=== PATIENT | female | born 1955 | race Caucasian/White ===

== ENCOUNTER → 2018-08-01 | Outpatient (CLI) | payer SELFPAY | LOC: ZCOL.LAB 19:18 | DX: S69.82XA Other specified injuries of left wrist, hand and finger(s), initial encounter (principal) ==

== ENCOUNTER 2024-01-13 10:49 | Inpatient (IN) | payer MEDICARE, BC ==
[~2024-01-13] VITALS: Ht 162.6 cm; Wt 83.4 kg
[2024-01-13] MEDS ORDERED: COLACE 100100 MG/CAP PO (14:16)
[2024-01-13] MEDS ORDERED: LACTULOSE10 GM/153 PO (14:30)
[2024-01-13] MEDS ORDERED: ROBAXIN 50500 MG/TAB PO (14:31)
[2024-01-13] MEDS ORDERED: GOOD NEIGH1200 MG/15 PO (14:43)
[2024-01-13] MEDS ORDERED: ROXICODONE 55 MG/TAB PO (14:43)
[2024-01-13] MEDS ORDERED: NATURAL SENNA8.6 MG PO (14:45)
[2024-01-13] MEDS ORDERED: VITAMINC1000TA PO (14:48)
[2024-01-13] MEDS ORDERED: TYLENOL 500MG500 MG PO (14:48)
[2024-01-13] MEDS ORDERED: OS-CAL 500 + D1 TAB PO (14:50)
[2024-01-13] MEDS ORDERED: VITAMIND3 5000 PO (14:50)
[2024-01-13] MEDS ORDERED: PEPCID 20MG TAB20 MG PO (14:51)
[2024-01-13] MEDS ORDERED: CRANBERRY250 MG PO (14:51)
[2024-01-13] MEDS ORDERED: NEURONTIN300 MG/CAP PO (14:53)
[2024-01-13] MEDS ORDERED: PRINIVIL10 MG PO (14:54)
[2024-01-13] MEDS ORDERED: PROBIOTIC ACID PO (14:54)
[2024-01-13] MEDS ORDERED: WOMEN'S DAILY1 TAB PO (14:55)
[2024-01-13] MEDS ORDERED: MACRODANTIN100 PO (14:55)
[2024-01-13] MEDS ORDERED: Naloxone 0.4 MG/ML VIAL IV PRN (16:30)
[2024-01-13] MEDS ORDERED: Docusate Sodium 100 MG CAP PO PRN (16:30)
[2024-01-13] MEDS ORDERED: Acetaminophen 500 MG TAB PO PRN (16:30)
[2024-01-13] MEDS ORDERED: PROBIOTIC-MAJOR PO (16:38)
[2024-01-13] MEDS ORDERED: HEPARIN SOD5000 U/ML SQ (16:42)
[2024-01-13 16:44] VITALS: BP 167/81; PULSE 85; TEMP 98.3
[2024-01-13] MEDS ORDERED: oxyCODONE 5 MG TAB PO PRN (17:00)
[2024-01-13] MEDS ORDERED: Famotidine 20 MG TAB PO PRN (17:00)
[2024-01-13] MEDS ORDERED: Heparin 5,000 UNITS/ML 1 ML VIAL SQ SCH (17:00)
[2024-01-13] MEDS ORDERED: Gabapentin 300 MG CAP PO SCH (17:00)
[2024-01-13] MEDS ORDERED: Methocarbamol 500 MG TAB PO PRN (17:00)
[2024-01-13 17:30] VITALS: BP_SYST 156
[2024-01-13 17:48] VITALS: BP 156/82; PULSE 87; TEMP 98.5
--- NOTE | 2024-01-13 19:32 | NUR ---
Patient admitted to room 334 from [facility]. Admission completed. Patient alert and oriented. aware of arrival and cares discussed including stright cath and elevated BP and pain. Her supportive family at bedside. Brace off in bed. Warm blanket and medication for comfort. BEdside report to ramya
[2024-01-13 21:00] VITALS: BP_SYST 156
[2024-01-13] MEDS ORDERED: Lisinopril 20 MG TAB PO SCH (21:00)
[2024-01-13] MEDS ORDERED: NITROFURANTOIN 50 MG PO SCH (21:00)
[2024-01-13] MEDS ORDERED: Sennosides/Docusate 8.6-50 MG TAB PO SCH (21:00)
[2024-01-13] MEDS ORDERED: Lactulose Oral Soln 10 GM/15 ML CUP PO PRN (21:00)
[2024-01-13] MEDS ORDERED: Ascorbic Acid 500 MG TAB PO SCH (21:00)
[2024-01-13] MEDS ORDERED: Magnes Hydrox (MOM) 80 MG/ML 30 ML CUP PO SCH (21:00)
--- NOTE | 2024-01-13 21:30 | NUR ---
ASSISTED BEDSIDE RN TO PREFORM STRAIGHT CATH WITH 250CC OF URINE OUT, SEE I&O.
--- NOTE | 2024-01-13 22:18 | NUR ---
report received from kirti matos. pt resting in bed with family at bedside. pt reports pain med given on prev. shift has somewhat relieved her pain. fall precautions in place. call light in reach. all needs met at this time.
--- NOTE | 2024-01-13 23:52 | NUR ---
shift assessment complete, see documentation. pt tolerated hs meds well. pt tolerated straight cath well with 250ml clear yellow urine. pt c/o low back/leg back. prn muscle relaxer administered per orders. pt resting in bed. fall precautions in place. call light in reach. all needs met at this time.
[2024-01-14 06:00] VITALS: BP 154/86; PULSE 89; TEMP 98.7
--- NOTE | 2024-01-14 07:12 | NUR ---
Shift report received from night RN. No events reported overnight. Pt sleeping supine in bed w/ even & unlabored resps. Call light in reach. Bed alarm on.
--- NOTE | 2024-01-14 08:29 | NUR ---
Pt lying supine in bed after eating breakfast independently. Pt assisted to sitting position for a.m. medications. Amelia requested. Pain medication given this morning during the shift supervisor film processing. Pt reports vomiting x 1 during the night & had a loose stool. Pt reports some itching to back incision. Midline abd incision w/ CDI jayson & redness along incision. PT at the bedside for eval.
[2024-01-14] MEDS ORDERED: hydrOXYzine HCl 10 MG TAB PO PRN (08:45)
[2024-01-14] MEDS ORDERED: Cholecalciferol (Vit D3) 5000 Units Capsule PO SCH (09:00)
[2024-01-14] MEDS ORDERED: Calcium Carb/Vit D3 500 mg-200 Units TAB PO SCH (09:00)
--- NOTE | 2024-01-14 09:05 | NUR ---
Pt sitting up on side of bed with PT. Serosaing drainage noted from back right lower back incision. Dr. Manzanares notified & at the bedside for eval. Airstrip dressing applied to left & right back incisions. Will continue to monitor.
--- NOTE | 2024-01-14 11:27 | NUR ---
Pt requesting straight cath. Order received to straight cath q4h per pt's home schedule. Pt usually straight caths at home independently prior to her surgery. RN & OT at the bedside to assess pt's ability to perform independently. Pt ambulated from recliner to bathroom & felt BLE too weak to continue standing. Will revisit self-straight cath once BLE stronger & per OT recommendations. Straight cath performed w/ 270 mL clear, yellow urine obtained. OT at the bedside for sponge bath.
--- NOTE | 2024-01-14 12:25 | NUR ---
Pt sitting up in bed to eat lunch but does not feel like eating. Pt reporting mild nausea & back pain. Oxycodone given per PRN order. Dr. Romero notified of nausea - see EMAR for changes.
--- NOTE | 2024-01-14 12:35 | NUR ---
Zofran given per PRN order.
--- NOTE | 2024-01-14 12:57 | NUR ---
Pt feeling like her pain & nausea are "getting better". Reports feeling sleepy. Other needs denied. Call light in reach. Bed alarm on.
--- NOTE | 2024-01-14 16:13 | NUR ---
Pt sitting up in bed working on her laptop. Pt reporting pain 5/10. Oxycodone given per PRN order. Other needs denied. Call light in reach. Bed alarm on.
[2024-01-14 17:35] VITALS: BP 133/77; PULSE 82; TEMP 98.4
--- NOTE | 2024-01-14 17:41 | NUR ---
Pt sitting up in bed eating dinner independently. Does feel like eating much. Denies any needs. Call light in reach. Bed alarm on.
--- NOTE | 2024-01-14 19:15 | NUR ---
PT REPORTS FEELING LIKE SHE NEEDS STRAIGHT CATHED. GOT 300ML CLEAR ZEESHAN OUTPUT.
--- NOTE | 2024-01-14 21:15 | NUR ---
PT A&O X4 LAYING IN BED ON TABLET. MIDLINE INCISION W/ SHAKIR INTACT & X2 INCISIONS TO LOWER BACK WITH DRSG CDI. RATING PAIN 4/10 & REQUESTING PAIN MEDS AT BEDTIME. DENYING OTHER NEEDS AT THIS TIME. CALL LIGHT IN REACH & BED ALARM ON
--- NOTE | 2024-01-14 22:20 | NUR ---
PER MAR GAVE PRN OXYCODONE PER PT REQUEST FOR BACK PAIN. STRAIGHT CATHED AGAIN PER PT REQUEST & RECEIVED 100ML ZEESHAN OUTPUT. DENYING OTHER NEEDS. CALL LIGHT IN REACH & BED ALARM ON
--- NOTE | 2024-01-15 02:20 | NUR ---
PT REQUESTING TO BE STRAIGHT CATHED. YELLOW OUTPUT 250MLS
[2024-01-15 06:26] VITALS: BP 161/74; PULSE 81; TEMP 98.1
--- NOTE | 2024-01-15 06:30 | NUR ---
given prn oxycodone per pt request for back & leg pain. straight cathed pt per request & 300ml yellow output
--- NOTE | 2024-01-15 06:52 | NUR ---
Shift report received from night RN. Pt awake & lying supine in bed. Pillow placed under back for support/comfort per pt request. Other needs denied. brought in raised toilet seat from home overnight - will discuss w/ OT. No events reported overnight. Call light in reach. Bed alarm on.
--- NOTE | 2024-01-15 08:33 | NUR ---
Pt is off unit w/ PT.
--- NOTE | 2024-01-15 11:19 | NUR ---
Pt sitting up in recliner working w/ OT. Oxycodone given at pt's request for pain level of 5. Other needs denied. Call light in reach. Chair alarm in place.
--- NOTE | 2024-01-15 13:08 | NUR ---
Pt requesting to be straight cathed. 250mL dark yellow, clear urine obtained. Encouraged pt to increase her fluid intake. Pt. voiced understanding.
--- NOTE | 2024-01-15 13:18 | NUR ---
Per pt, lab in pt room to obtain ordered lab draw. Lab unable & contact [facility]. This RN placed follow up call to AI & left a voice mail.
--- NOTE | 2024-01-15 13:41 | NUR ---
Pt ambulating off unit w/ PT
--- NOTE | 2024-01-15 14:49 | NUR ---
Pt incontinent of loose BM this morning while working w/ OT. Pt incontinent of small loose stool this afternoon. Okay to hold afternoon scheduled dose of Senna per Dr. Romero. Pt on toilet to attempt BM.
--- NOTE | 2024-01-15 15:35 | NUR ---
Initial visit; Patient tanked [employer] G[employer] Director for looking in on her and offering God's blessings and to keep her in [employer] Director's prayers.
--- NOTE | 2024-01-15 15:41 | NUR ---
dental laboratory worker met with pt to complete intake assessment. Pt reports she lives in [place] with her , Hilda [phone]. She sees Dr. Becker and obtains medications from [facility] in [place] with no issues. She states she is independent with ADLS and has a FWW, ccane, toilet risers, and grab bar for DME. She reports she typically drives herself to appointments. Pt states she does have many stairs in the home. Pt states her DPOA-HC is her and son, Angel. Pt provided a [employer] physical card to obtain this DPOA-HC. SW called the provided number and requested this to be faxed. SW attended team conference meeting and was informed pt was a re-eval and will be in IPR around two weeks. No further needs discussed. SW met with pt and provided team conference notes. She did not have any questions. SW discussed the need for a family meeting next Saturday at 10:15a or 10:30am. She reports she will discuss with her and son and inform SW. Discharge Plan: re-eval
--- NOTE | 2024-01-15 16:47 | NUR ---
Pt lying supine in bed w/ HOB elevated to approx 30 degrees. Lab in room to draw ordered labs, CBC sample hemolyzed - bundle tier and labeler on her way back for redraw. Pt denies the need for pain medication at this time. Reports "feeling okay right now". Other needs denied. Call light in reach. Bed alarm on.
[2024-01-15 16:56] LABS: CALCIUM 8.7 mg/dL (8.4-10.2); CREATININE, serum 0.75 mg/dL (0.57-1.11); POTASSIUM 5.4 mEq/L (3.5-4.5)
[2024-01-15 16:58] VITALS: BP 154/76; PULSE 81; TEMP 97.8
--- NOTE | 2024-01-15 17:05 | NUR ---
Pt repositioned in bed. Requesting pain medication after being moved in bed. Oxycodone given per PRN order.
[2024-01-15 17:37] LABS: HEMOGLOBIN 11.3 g/dl (12.5-16.0); MEAN CELL VOLUME 91 fl (80.0-100.0); MEAN CORPUSCULAR HEMOGLOBIN 29 pg (27-31); MEAN CORPUSCULAR HGB CONC 32 g/dl (33.0-37.0); MEAN PLATELET VOLUME 8.4 fl (7.4-10.4); PLATELET COUNT 349 K/mm3 (130-400); RED BLOOD COUNT 3.86 M/mm3 (4.10-5.30); REDCELL DISTRIBUTION WIDTH-CV 13.9 % (11.5-14.5)
[2024-01-15 17:51] LABS: ANISOCYTOSIS 1+; BAND 4 % (0-10); LYMPHOCYTE 9 % (20.0-51.0); METAMYELOCYTE 5 % (0-0); NEUTROPHILS 76 % (42.0-75.2); POLYCHROMASIA 1+
[2024-01-15 17:52] LABS: STOMATOCYTE 1+
--- NOTE | 2024-01-15 19:00 | NUR ---
Received change of shift report from day shift nurse. Patient resting in bed, family at bedside, no needs voiced at time of report. Exit alarm on, call light in reach.
[2024-01-15 20:59] VITALS: BP 149/76
[2024-01-16 05:49] VITALS: BP 129/76; PULSE 84; TEMP 99.7
--- NOTE | 2024-01-16 07:15 | NUR ---
Change of shift report given to day shift nurse, William. Patient requesting int str cath to be done at this time. Patient has had int cath done this shift about at least x4 that patient has tolerated. Patient also voicing concerns that BLE feel "kind of numb.... I can't move them as well as before surgery" Patient encouraged to express her concerns when doctor is rounding today. No other needs reported. As per PCT report, patient's has passed watery to liquid/loose stools this shift. Denies nausea at this time.
--- NOTE | 2024-01-16 08:25 | NUR ---
PT EATING BREAKFAST. REVIEWED CAREPLAN FOR THE DAY. AM MEDS GIVEN ORDERED. TY PAIN MEDS GIVEN. PT SELF CATHS AT HOME. MIDLINE INCISION CDI WITH SHAKIR TIFFANIE.
[2024-01-16] MEDS ORDERED: Magnes Hydrox (MOM) 80 MG/ML 30 ML CUP PO PRN (09:54)
--- NOTE | 2024-01-16 10:49 | NUR ---
supervisor machine workers recieved a call that pt would like her family meeting at 01/22/24 10:15am. SW informed IPR Director Alexandria. Discharge Plan: re-eval
[2024-01-16] MEDS ORDERED: amLODIPine 5 MG TAB PO SCH (14:27)
[2024-01-16 14:28] LABS: COLLECTION METHOD CATHETER
[2024-01-16] MEDS ORDERED: Sodium Zirconium Cyclosilicate for Oral Susp 10 GM PACKET PO ONE (14:30)
--- NOTE | 2024-01-16 14:40 | NUR ---
Admission QIM scores were reviewed by the team. Code of 88 chosen for oral hygiene was determined by team discussion to be the most usual performance before interventions for this patient during the assessment period. Code of 1 chosen for toileting hygiene was determined by team discussion to be the most usual performance for this patient during the discharge assessment period. Code of 2 chosen for toilet transfers was determined by team discussion to be the most usual performance for this patient during the discharge assessment period. Code of 2 chosen for upper body dressing was determined by team discussion to be the most usual performance before interventions for this patient during the assessment period. Code of 1 chosen for lower body dressing was determined by team discussion to be the most usual performance before interventions for this patient during the assessment period. Code of 2 chosen for sit to lying was determined by team discussion to be the most usual performance before interventions for this patient during the assessment period. Code of 2 chosen for lying to sitting side of bed was determined by team discussion to be the most usual performance before interventions for this patient during the assessment period. Code of 2 chosen for sit to stand was determined by team discussion to be the most usual performance for this patient during the discharge assessment period. Code of 88 chosen for chair to bed was determined by team discussion to be the most usual performance for this patient during the discharge assessment period. Code of 88 chosen for walking 10 feet was determined by team discussion to be the most usual performance for this patient during the discharge assessment period. Code of 88 chosen for walking 50 feet w/ 2 turns was determined by team discussion to be the most usual performance before interventions for this patient during the discharge assessment period.--PD Gabby
[2024-01-16 14:42] LABS: PH 7.5 (5.0-8.5); URINE APPEARANCE CLEAR (CLEAR/HAZY); URINE BLOOD NEGATIVE (NEGATIVE); URINE COLOR YELLOW (YELLOW); URINE GLUCOSE NEGATIVE (NEGATIVE); URINE KETONE NEGATIVE (NEGATIVE); URINE NITRATE NEGATIVE (NEGATIVE); URINE PROTEIN(semi-quant) NEGATIVE (NEGATIVE); URINE UROBILINOGEN 0.2 E.U/dL (0.2-1.0)
[2024-01-16 17:13] VITALS: BP 146/81; PULSE 83; TEMP 99.2
--- NOTE | 2024-01-16 18:19 | NUR ---
STRAIGHT CATH X2 THIS SHIFT. NEW ORDERS FOR HOWARD PLACEMENT. COMPLETED BY [facility] RN STUDENTS AND INSTRUCTOR. PT REPORTS TOLERTED WELL.
--- NOTE | 2024-01-16 19:00 | NUR ---
Received change of shift report from day shift nurse. Patient resting in bed, exit alarm on, call light in reach. Requested and even pain med for LLQ discomfort. Observed lerner cath to DD, draining clear yellow urine. Denies chest pain/SOA/nausea at this time.
[2024-01-16] MEDS ORDERED: Sennosides/Docusate 8.6-50 MG TAB PO SCH (21:00)
[2024-01-16 22:00] VITALS: BP 142/69
--- NOTE | 2024-01-17 03:27 | NUR ---
PATIENT RESTING IN BED WITH EYES CLOSED, BREATHING UNLABORED AND EVEN. EXIT ALARM ON, CALL LIGHT IN REACH.
--- NOTE | 2024-01-17 04:37 | NUR ---
REPORTS HAS FEELING OF ABD FULLNESS, DENIES NAUSEA OR CRAMPING. BOWELS SOUNDS PRESENT BUT SLUGGISH, SEE MAR FOR SUPP GIVEN AND PAIN MEDS. NO OTHER NEEDS REPORTED AT THIS TIME.
[2024-01-17 05:30] VITALS: BP 126/76; PULSE 79; TEMP 99
[2024-01-17 06:15] LABS: HEMOGLOBIN 10.3 g/dl (12.5-16.0); MEAN CELL VOLUME 88 fl (80.0-100.0); MEAN CORPUSCULAR HEMOGLOBIN 29 pg (27-31); MEAN CORPUSCULAR HGB CONC 33 g/dl (33.0-37.0); MEAN PLATELET VOLUME 8.3 fl (7.4-10.4); PLATELET COUNT 351 K/mm3 (130-400); RED BLOOD COUNT 3.54 M/mm3 (4.10-5.30); REDCELL DISTRIBUTION WIDTH-CV 14.2 % (11.5-14.5)
[2024-01-17 06:38] LABS: CREATININE, serum 0.72 mg/dL (0.57-1.11); MAGNESIUM 2.1 mg/dL (1.6-2.6); POTASSIUM 4.6 mEq/L (3.5-4.5)
[2024-01-17 06:40] LABS: HEMATOCRIT 31.2 % (37.0-47.0)
--- NOTE | 2024-01-17 07:00 | NUR ---
awake resting in bed, bedside shift report received from VIRIDIANA Mary
--- NOTE | 2024-01-17 07:03 | NUR ---
Change of shift report given to day shift nurseMelyssa. Patient resting in bed, exit alarm on, call light in reach. No needs voiced at time of report.
--- NOTE | 2024-01-17 07:40 | NUR ---
up to bathroom and havig bowel movement, therapy is scheduled for 744
[2024-01-17 08:20] LABS: BAND 6 % (0-10); EOSINOPHIL 2 % (0-4); LYMPHOCYTE 8 % (20.0-51.0); METAMYELOCYTE 2 % (0-0); NEUTROPHILS 76 % (42.0-75.2); PLATELET ESTIMATE NORMAL (NORMAL)
--- NOTE | 2024-01-17 09:15 | NUR ---
resting in chair after breakfast, full assessment completed, see interventions for further info
--- NOTE | 2024-01-17 14:33 | NUR ---
mixed livestock farm worker met with pt to assess for any needs before the weekend. No concerns noted. Discharge Plan: re-eval. family meeting 10:15a 01/21
--- NOTE | 2024-01-17 15:50 | NUR ---
assisted out of recliner and into bed, denies pain or needs
[2024-01-17 16:22] VITALS: BP 104/65; PULSE 81; TEMP 98.5
--- NOTE | 2024-01-17 17:20 | NUR ---
sitting up in bed eating supper, denies needs
--- NOTE | 2024-01-17 17:32 | NUR ---
pt already has I.S. in room, completing intervention.
--- NOTE | 2024-01-17 18:30 | NUR ---
bedside shift report given to LEIGH Samuels
--- NOTE | 2024-01-17 18:44 | NUR ---
Bedside report received from VIRIDIANA Ragsdale. Pt is awake in bed with no complaints. Call light within reach.
--- NOTE | 2024-01-18 05:12 | NUR ---
Pt had uneventful night this shift. Shift assessment completed. VSS. Pt ambulated to the bathroom two times during this shift. Lerner catheter in place with clear yellow urine draining into lerner bag. Pt has no complaints of pain at this time. Call light within reach and fall precautions in place.
[2024-01-18 05:37] VITALS: BP 145/73; PULSE 82; TEMP 98.8
--- NOTE | 2024-01-18 07:07 | NUR ---
Shift report received from night RN. No events reported overnight. Lerner cath patent to drainage w/ clear, yellow return. Pt stating that lerner is "through the weekend only". Other needs denied. Call light in reach. Bed alarm on.
--- NOTE | 2024-01-18 08:44 | NUR ---
Pt off unit w/ PT.
--- NOTE | 2024-01-18 10:57 | NUR ---
Pt remains off unit for Group Therapy.
--- NOTE | 2024-01-18 11:59 | NUR ---
Pt resting supine in bed after Group Therapy. Pt reporting back pain but report that her pain is improving since lying supine w/ BLE elevated. Oxycodone given at pt's request. Mccracken cath patent to drainage w/ clear, yellow urine. Other needs denied. Call light in reach. Bed alarm on.
--- NOTE | 2024-01-18 12:02 | NUR ---
Airstrip dressing to lower back w/ shadowing noted. Airstrip dressing changed.
--- NOTE | 2024-01-18 14:23 | NUR ---
Pt sitting up in recliner watching tv. Denies any needs. Call light in reach. Chair alarm in place.
--- NOTE | 2024-01-18 16:13 | NUR ---
Pt sitting up in recliner visiting w/ family. Denies any needs. Call light in reach. Chair alarm in place.
--- NOTE | 2024-01-18 17:27 | NUR ---
Pt eating dinner independently. Denies any needs. Call light in reach. Chair alarm in place.
[2024-01-18 17:49] VITALS: BP 137/73; PULSE 93; TEMP 97.4
--- NOTE | 2024-01-18 18:23 | NUR ---
Pt up to ambulate from recliner to bed w/ FWW. Pt assisted to bed & positioned supine at her request. Non pitting edema noted to both feet. Feet elevated in bed. Mccracken cath remains patent to DD w/ clear, yellow urine. Pt denies other needs. Call light in reach. Bed alarm on.
--- NOTE | 2024-01-18 18:51 | NUR ---
Bedside report received from`
--- NOTE | 2024-01-18 19:28 | NUR ---
Bedside report received from VIRIDIANA Malik. Pt is currently in bed resting with no complaints. Call light within reach.
[2024-01-19 05:11] VITALS: BP 145/73; PULSE 82; TEMP 98.8
--- NOTE | 2024-01-19 05:11 | NUR ---
Pt had uneventful night this shift. Pt slept through most of the night some complaints of pain in lower back. Administered PRN Rebeca as ordered. Shift assessment completed. VSS. Mccracken catheter in place. Pt has no request at this time. Call light within reach and fall precautions in place.
--- NOTE | 2024-01-19 07:04 | NUR ---
Shift report received from night RN. No events reported overnight. Pt supervised as she stood from bed to FWW & ambulated to the bathroom w/ CGA. Pt given pain medication this morning from night RN. Denies the need for additional medication.
--- NOTE | 2024-01-19 11:04 | NUR ---
Pt sleeping supine in bed. Aroused easily from sleep. Denies need.
--- NOTE | 2024-01-19 12:14 | NUR ---
Pt up in wheelchair wanting to lay down in bed. Supervision provided as pt stood from wheelchair to FWW & transferred to bed. Pt wanting to leave TLSO brace on as she is expecting family for lunch. Pt reporting BLE "muscle tightness" that is not painful & not causing numbness/tingling. Robaxin given per PRN order. Other needs denied. Call light in reach. Bed alarm on.
--- NOTE | 2024-01-19 14:23 | NUR ---
Pt off unit via wheelchair to courtyard w/ family.
--- NOTE | 2024-01-19 15:56 | NUR ---
Pt back in room & assisted to bed at her request. Family remains at the bedside. Other needs denied.
--- NOTE | 2024-01-19 17:14 | NUR ---
Pt resting supine in bed. She reports lower abdominal fullness w/o pain or tenderness. Mccracken cath patent to DD. Pt report lack of BM x 3-4 days. MOM given per PRN order. Oxycodone given for back pain 03/30.
[2024-01-19 17:22] VITALS: BP 130/68; PULSE 85; TEMP 98.4
--- NOTE | 2024-01-19 18:21 | NUR ---
Pt sitting up in bed eating dinner. Reports lower abd fullness is almost gone. Pt stating that she feels like the MOM is beginning to work. Kaykay remains patent to DD w/ clear, yellow urine. Other needs denied. Call light in reach. Bed alarm on.
[2024-01-19 19:55] VITALS: BP_SYST 130
[2024-01-20 05:47] VITALS: BP 153/83; PULSE 77; TEMP 98.4
[2024-01-20 07:00] VITALS: BP_SYST 153
--- NOTE | 2024-01-20 09:50 | NUR ---
PT UP WITH THERAPY AFTER BREAKFAST. PT DENIES NEEDS. SHAKIR INTACT TO ABDOMINAL INCISION. HOWARD CATHETER TO DD WITH CLEAR YELLOW URINE.
[2024-01-20] MEDS ORDERED: Gabapentin 300 MG CAP PO SCH (14:00)
--- NOTE | 2024-01-20 14:11 | NUR ---
material requirements worker met with pt to assess for any needs from SW. Pt reports no needs and her and son will be in person at the family meeting 01/21 10:15am. Discharge Plan: re-eval
[2024-01-20 17:49] VITALS: BP 129/69; PULSE 88; TEMP 98.4
--- NOTE | 2024-01-20 18:43 | NUR ---
Received change of shift report from day shift nurse.
[2024-01-20 19:00] VITALS: BP_SYST 129
--- NOTE | 2024-01-20 19:52 | NUR ---
PATIENT REPORTS HAVING SPASMS TO BLE, WITH DISCOMFORT TO TOES OF CHAVEZ FEET. SEE MAR FOR MEDS GIVEN AT THIS TIME.
[2024-01-20 21:10] VITALS: BP 138/74
--- NOTE | 2024-01-21 02:50 | NUR ---
PATIENT COMPLAINED OF LOWER ABD FULLNESS, PATIENT REPOSITIONED FROM LEFT SIDE TO STANDING AT BEDSIDE, WALKING IN PLACE THEN REPORTED ABD FULLNESS SUBSIDED. PATTIENT THEN PLACED BACK IN BED ONTO BACK INITIALLY THEN REPOSITIONED ONTO RIGHT SIDE. PATIENT REQUESTED AND GIVEN TYLENOL FOR BLE SORENESS, SEE MAR. EXIT ALARM ON, WHEN BACK IN BED, CALL LIGHT IN REACH.
[2024-01-21 05:02] VITALS: BP 109/68; PULSE 77; TEMP 98.3
[2024-01-21 07:00] VITALS: BP_SYST 109
--- NOTE | 2024-01-21 07:18 | NUR ---
CHANGE OF SHIFT REPORT GIVEN TO DAY SHIFT NURSEOBEY. PATIENT UP IN CHAIR, EXIT ALARM ON, CALL LIGHT IN REACH.
--- NOTE | 2024-01-21 15:50 | NUR ---
PT UNABLE TO SELF CATH. PLACED INTERMITTANT CATHETER AND RETURNED 200 MLS CLEAR YELLOW URINE.
[2024-01-21 17:38] VITALS: BP 156/72; PULSE 95; TEMP 98
--- NOTE | 2024-01-21 18:37 | NUR ---
RECEIVED CHANGE OF SHIFT REPORT FROM DAY SHIFT NURSE.
[2024-01-21 19:00] VITALS: BP_SYST 156
[2024-01-21 20:31] VITALS: BP 118/54
--- NOTE | 2024-01-21 23:02 | NUR ---
PATIENT SELF CATH WITH ASST FROM NURSING OF UNMEASURED AMOUNT X2 SEPARATE EPISODES THAT PATIENT FELT BLADDER PRESSURE SENSATION SUBSIDE BOTH TIMES.
[2024-01-22 05:14] VITALS: BP 128/68; PULSE 83; TEMP 97.5
--- NOTE | 2024-01-22 07:05 | NUR ---
CHANGE OF SHIFT REPORT GIVEN TO DAY SHIFT NURSECARY. PATIENT RESTING IN BED WITH EXIT ALARM ON, CALL LIGHT IN REACH. NO NEEDS REPORTED AT TIME OF REPORT.
[2024-01-22 07:10] VITALS: BP_SYST 128
--- NOTE | 2024-01-22 07:11 | NUR ---
Shift report received from night RN. No events reported overnight. Pt awake & lying supine in bed ordering breakfast. Pt denies other needs. Call light in reach. Bed alarm on.
[2024-01-22 07:20] LABS: HEMOGLOBIN 11.3 g/dl (12.5-16.0); MEAN CELL VOLUME 90 fl (80.0-100.0); MEAN CORPUSCULAR HEMOGLOBIN 29 pg (27-31); MEAN CORPUSCULAR HGB CONC 32 g/dl (33.0-37.0); PLATELET COUNT 460 K/mm3 (130-400); RED BLOOD COUNT 3.91 M/mm3 (4.10-5.30); REDCELL DISTRIBUTION WIDTH-CV 14.6 % (11.5-14.5)
[2024-01-22 07:22] LABS: HEMATOCRIT 35.3 % (37.0-47.0)
[2024-01-22 07:31] LABS: EOSINOPHIL 3 % (0-4); LYMPHOCYTE 8 % (20.0-51.0); NEUTROPHILS 82 % (42.0-75.2); PLATELET ESTIMATE INCREASED (NORMAL)
--- NOTE | 2024-01-22 07:34 | NUR ---
Pt up to wheelchair at sink for a.m. hygiene & self-cath performed. UOP = 200 mL clear, yellow urine. Oxycodone given per pt's request prior to starting therapy this morning. Other needs denied. Call light in reach.
[2024-01-22 07:39] LABS: CALCIUM 9.4 mg/dL (8.4-10.2); CREATININE, serum 0.79 mg/dL (0.57-1.11)
--- NOTE | 2024-01-22 08:41 | NUR ---
Pt off unit w/ PT.
--- NOTE | 2024-01-22 10:15 | NUR ---
Family meeting conducted w/ pt, , & son & [id number] via phone. Also present was the MD, PT, OT, & SW. MD talked about medical & therapists talked about how pt has progressed from a functional standpoint. Pt/Family stated they understood. Informed them of a d/c for 01/31/24, w/ recommendations for home & HH PT/OT. Pt & Son had some questions, which the team answered.
--- NOTE | 2024-01-22 11:52 | NUR ---
Pt sitting up in recliner after working w/ OT. Pt denies the need for pain medication at this time. Denies other needs. Call light in reach. Chair alarm in place.
--- NOTE | 2024-01-22 12:51 | NUR ---
RAD notified of EKG order.
--- NOTE | 2024-01-22 12:57 | NUR ---
Pt up to bathroom. Self straight cath performed successfully. Pt positioned supine in bed at her request to wait for EKG. Other needs denied. Call light in reach. Bed alarm on.
--- NOTE | 2024-01-22 13:04 | NUR ---
RT at the beside for EKG.
--- NOTE | 2024-01-22 13:32 | NUR ---
Banquet Steward attending clinical rounding with team. Discussed patient's progress in IPR program. Attended family meeting with team, patient, and son. Discussed patient's potential for discharge on 01/31/24 and need for home health services. Provided Medicare.gov list for patient to review. She wants to discuss with her and let SW know their choice. Discharge Plan: Home with HH
--- NOTE | 2024-01-22 14:54 | NUR ---
MOM given at pt's request. Last BM 2 days ago.
--- NOTE | 2024-01-22 15:39 | NUR ---
Pt sitting up in recliner talking on her cellphone. Denies needs.
--- NOTE | 2024-01-22 17:13 | NUR ---
Pt up to bathroom to self cath. Pt able to perform w/o nursing assistance. Urine clear, yellow. Pt back to bed after toileting. Other needs denied. Call light in reach. Bed alarm on.
--- NOTE | 2024-01-22 19:04 | NUR ---
RECEIVED CHANGE OF SHIFT REPORT FROM DAY SHIFT NURSE. PATIENT REQUESTED AND GIVEN PAIN MED FOR DISCOMFORT TO LL ABD/HIP, SEE MAR.
[2024-01-22 19:33] VITALS: BP 120/72; PULSE 96; TEMP 98.7
[2024-01-22 19:34] VITALS: BP_SYST 120
--- NOTE | 2024-01-23 00:33 | NUR ---
REQUESTED AND GIVEN PAIN MEDS FOR COMPLAINTS OF BLE CRAMPING, SEE MAR FOR MEDS GIVEN. REPORTS IS STILL ONLY PASSING SMALL AMOUNTS OF FORMED STOOL, REPORTS PASSING SMALL AMOUNT OF FLATUS AT TIMES. DENIES CHEST PAIN/CHILLING/SOA/NAUSEA AT THIS TIME.
[2024-01-23 05:11] VITALS: BP 116/72; PULSE 76; TEMP 97.9
[2024-01-23 06:17] LABS: CALCIUM 9.6 mg/dL (8.4-10.2); CREATININE, serum 0.9 mg/dL (0.57-1.11); POTASSIUM 5.2 mEq/L (3.5-4.5)
[2024-01-23 06:44] VITALS: BP_SYST 116
--- NOTE | 2024-01-23 07:18 | NUR ---
Shift report received from night RN. Pt awake & lying supine in bed. Pt supervised as she stood from bed to FWW to bathroom to self straight cath. Pt reporting urinary frequency. No odor, urine clear, yellow per night RN & this morning. Pt c/o bilat leg weakness overnight. No other events.
--- NOTE | 2024-01-23 07:24 | NUR ---
Change of shift report given to day shift nurseJoshua.
--- NOTE | 2024-01-23 07:45 | NUR ---
Pt requesting muscle relaxer & pain medication this morning. Robaxin & oxycodone given per PRN order. Other needs denied. Call light in reach. Bed alarm on.
--- NOTE | 2024-01-23 09:32 | NUR ---
Pt off unit w/ OT.
--- NOTE | 2024-01-23 11:43 | NUR ---
Pt back in room after Group Therapy. Pt performed straight cath indepenently successfully. Pt to recliner after toileting. Other needs denied. Call light in reach. Chair alarm in place.
--- NOTE | 2024-01-23 12:58 | NUR ---
Pt ambulating off unit w/ PT.
--- NOTE | 2024-01-23 14:42 | NUR ---
Staple removal: Midline abd incision: 22 jayson removed after incision cleaned w/ benzoin tincture. Incision well approximated & no bleeding noted. Steri strips applied. Right Low back incision: 15 jayson removed after incision cleaned w/ benzoin tincture. Incision well approximated. No bleeding. Steristrips applied. Left low back incision: 20 jayson removed after incision cleaned w/ benzoin tincture. Incision well approximated. No bleeding. Steristrips applied.
--- NOTE | 2024-01-23 14:56 | NUR ---
MOM given at pt's request.
--- NOTE | 2024-01-23 16:23 | NUR ---
Pt sleeping supine in bed. Resps even & unlabored. Call light in reach. Bed alarm on.
[2024-01-23 16:54] VITALS: BP 108/60; PULSE 85; TEMP 97.8
--- NOTE | 2024-01-23 16:58 | NUR ---
Pt lying supine in bed waiting for dinner. Denies pain/discomfort. Reports feeling like she could have a bowel movement soon. Other needs denied. Call light in reach. Bed alarm on.
--- NOTE | 2024-01-23 18:01 | NUR ---
Pt up to toilet to attempt BM. Pt unsuccessful. Palpable stool mass felt around anus. Pt reports having hx of hemorrhoids. Digital removal of stool not attempted. Lactulose given per PRN order.
[2024-01-23 19:00] VITALS: BP_SYST 108
--- NOTE | 2024-01-23 22:26 | NUR ---
UPON SHIFT ASSESSMENT, LEONARDA WAS IN BED AND AXO X4. VS ARE WNL AND SHE IS PLEASANT. SHE C/O OF ON GOING CONSTIPATION-BOWEL SOUAND ARE PRESENT AND ABDOMEN IS SOFT. MIDLINE INSCISION IS CDI WITH STERI STRIPS. BACK INSCISION IS CDI WITH STERI STRIPS. CALL LIGHT WITHIN REACH, BED ALARM ON.
--- NOTE | 2024-01-24 00:30 | NUR ---
PATIENT C/O OF ONGOING CONCERNS WITH CONSTIPATIOM, PRN MILK OF MAGNESIUM GIVEN. PATIENT ALSO C/O 6/10 CALF AND FOOT PAIN-BILATERALLY. PRN ROBAXIN GIVEN.
--- NOTE | 2024-01-24 03:21 | NUR ---
PATIENT RESTING IN BED, RR 14 NO VISABLE SIGNS OF DISTRESS.
--- NOTE | 2024-01-24 04:05 | NUR ---
STRAIGHT CATH PERFORMED IN EFFORT TO RELIEVE LOWER ABDOMINAL PRESSURE. 200 MLS URINE DRAINED. PATIENT FELT NO RELIEF AND STATED IT WAS D/T CONSTIPATION. REQUESTED THIS NURSE TO INSPECT ANUS-RECTUM WAS BULGING. PATIENT ASKED FOR DIGITAL REMOVAL OF FECES. EDUCATION WAS PROVIDED ON RISK FOR HEMORHOID BLEED. PATIENT STATED SHE WOULD ASSUME ALL RISK. DIGITAL EXTRACTION PERFORMED. LARGE AMOUNT OF FORMED, BROWN STOOL REMOVED. NO BLEEDING NOTED AND PATIENT TOLERATED IT WELL STATING SHE FELT SIGNIFICANT RELIEF.
--- NOTE | 2024-01-24 04:53 | NUR ---
INSCISION TO BACK MISSING [id number] ON INSIDE OF SHIRT. CHLORHEXIDINE SWABBED, TINCTURE APPLID AND STERI-STRIP REPLACED. WOUND EDGES APPROXIMATE. INSCISION TO ABDOMEN MISSING 2 [id number] ON BRIEF. SAME PROCEDURE ABOVE PERFORMED. WOUND EDGES APPROXIMATE.
[2024-01-24 05:54] VITALS: BP 121/72; PULSE 88; TEMP 98.4
[2024-01-24 07:20] VITALS: BP_SYST 121
--- NOTE | 2024-01-24 08:57 | NUR ---
PT RESTING IN BED WITH PAIN 4/10 IN ABDOMEN AND BACK. SLIGHTLY WEAK GAIT TO BATHROOM, PROVIDED ASSISTANCE WITH STRAIGHT CATH. SMALL BM THIS AM. STERI STRIPS TO ABDOMEN MIDLINE AND BACK INCISION CLEAN AND DRY. WILL CONTINUE TO MONITOR.
--- NOTE | 2024-01-24 15:37 | NUR ---
painting and coating worker met with pt who voiced no concerns. She informed SW she chose [facility] as this was reccomended by a friend to her. 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 SW went over how HH PT/OT can assist and provide education. SW Student Serina faxed a HH referral to [facility]. Discharge Plan: home with HH 01/30
[2024-01-24 17:23] VITALS: BP 153/67; PULSE 91; TEMP 98.2
[2024-01-24 19:00] VITALS: BP_SYST 153
[2024-01-24] MEDS ORDERED: Gabapentin 300 MG CAP PO SCH (21:00)
--- NOTE | 2024-01-25 02:03 | NUR ---
PT ALERT AND ORIENTED, RESTING IN BED. VSS, ASSESSED SEE DOCUMENTATION. REPOSITIONED IN BED. MODERATE PAIN REPORTED IN BLE. PAIN MEDICATION GIVEN WELL BEDTIME SCHEDULED MEDS. ALL INCISIONS CDI. DENIES FURTHER NEED, CALL LIGHT WITHIN REACH. BED ALARM ENGAGED.
[2024-01-25 05:55] VITALS: BP 112/68; PULSE 74; TEMP 97.8
[2024-01-25 07:10] VITALS: BP_SYST 112
--- NOTE | 2024-01-25 08:57 | NUR ---
Patient awake, alert and oriented. C/O numbness and tingling in lower extremities, expresses frustration with speed that she is recovering. PRNs given as ordered. Up in chair, TLSO brace in place. Chair alarm on, call light within reach.
[2024-01-25] MEDS ORDERED: amLODIPine 10 MG TAB PO SCH (09:00)
[2024-01-25] MEDS ORDERED: Gabapentin 300 MG CAP PO SCH (09:00)
--- NOTE | 2024-01-25 13:50 | NUR ---
Data: Patient accepted Chief Orthoptist services offered during Chief Orthoptist rounds. Assessment: Patient is reflecting on how her surgery might impact her homelife when she is discharged. Patient is lonely/bored. Plan of Care: Chief Orthoptist offered supportive listening during life review, conversation, and prayer. Chaplains will remain available as needed/requested while Patient is admitted to this hospital. Patient thanked Chief Orthoptist for the visit.
[2024-01-25 17:42] VITALS: BP 123/75; PULSE 95; TEMP 98.8
[2024-01-25 18:30] VITALS: BP_SYST 123
--- NOTE | 2024-01-25 20:11 | NUR ---
SHIFT ASSESSMENT COMPLETE. PATIENT RESTING IN BED WATCHING TV. ALL NIGHT MEDS GIVEN PER ORDERS. PATIENT HAS NO REQUEST OR CONCERNS AT THIS TIME. FALL PRECAUTIONS IN PLACE AND CALL LIGHT IN REACH.
[2024-01-26 05:10] VITALS: BP 134/82; PULSE 81; TEMP 98.2
--- NOTE | 2024-01-26 06:18 | NUR ---
PATIENT SLEEPING AT THIS TIME, HAD A ROUGH NIGHT OF GETTING UP AND DOWN TO GO TO THE BATHROOM. FALL PRECAUTIONS IN PLACE AND CALL LIGHT IN REACH
--- NOTE | 2024-01-26 06:45 | NUR ---
appears to be sleeping, bedside shift report received from LEIGH Mak
[2024-01-26 07:08] VITALS: BP_SYST 134
--- NOTE | 2024-01-26 08:15 | NUR ---
up in chair and has had breakfast, partial assessment completed and will complete when patietn up and out of chair, see interventions for further info, denies needs at this time
--- NOTE | 2024-01-26 08:40 | NUR ---
KAMILA Herbert in to see patient
[2024-01-26 09:39] LABS: COLLECTION METHOD CATHETER
--- NOTE | 2024-01-26 09:39 | NUR ---
stright cath completed under sterile technique and UA to the lab
[2024-01-26 09:53] LABS: PH 6.5 (5.0-8.5); URINE APPEARANCE CLEAR (CLEAR/HAZY); URINE BLOOD NEGATIVE (NEGATIVE); URINE COLOR YELLOW (YELLOW); URINE GLUCOSE NEGATIVE (NEGATIVE); URINE KETONE NEGATIVE (NEGATIVE); URINE NITRATE NEGATIVE (NEGATIVE); URINE PROTEIN(semi-quant) NEGATIVE (NEGATIVE); URINE UROBILINOGEN 0.2 E.U/dL (0.2-1.0)
--- NOTE | 2024-01-26 10:10 | NUR ---
continues to feel urge ro empty bladder, assisted up to bathroom and she will do a self cath
[2024-01-26 10:16] LABS: AMORPHOUS CRYSTAL PRESENT (NOT PRESENT); SQUAMOUS EPITHELIAL 0-2 /hpf (0-10); URINE BACTERIA RARE /hpf (NONE SEEN); URINE RBC 0-2 /hpf (0-2); URINE WBC 0-2 /hpf (0-2)
--- NOTE | 2024-01-26 10:45 | NUR ---
SENIOR SOFTWARE DEVELOPMENT MANAGER in and assited her out of bathroom and into recliner, states she did have a small amount of urine when she self cathed
--- NOTE | 2024-01-26 12:15 | NUR ---
assisted up and into bathroom and then back to chair
--- NOTE | 2024-01-26 14:20 | NUR ---
assisted out of bed and ambulated into bathroom and self cath performed, then assisted out and into WC per her request
--- NOTE | 2024-01-26 16:00 | NUR ---
friends here to visit, wheeled her out of room and down to chapel to visit
--- NOTE | 2024-01-26 17:00 | NUR ---
medicated with AZO for continuing the feel of the urge to void
--- NOTE | 2024-01-26 17:09 | NUR ---
sitting up in chair eating supper
--- NOTE | 2024-01-26 17:38 | NUR ---
had supper and tolerated well, medicated with milk of mag 30ml per her request
[2024-01-26 17:40] VITALS: BP 158/78; PULSE 64; TEMP 97.4
[2024-01-26 17:50] VITALS: BP 144/77; PULSE 100; TEMP 98.6
--- NOTE | 2024-01-26 18:02 | NUR ---
assisted out of bed and ambulated out to surgical nurses station and around and back to room, tolerates well but is tired when finished
--- NOTE | 2024-01-26 18:50 | NUR ---
bedside shift report given to VIRIDIANA Mary
--- NOTE | 2024-01-26 18:53 | NUR ---
RECEIVED CHANGE OF SHIFT REPORT FROM DAY SHIFT NURSE.
[2024-01-26 18:59] VITALS: BP_SYST 144
--- NOTE | 2024-01-26 19:00 | NUR ---
PATIENT UP IN CHAIR, NO NEEDS VOICED AT TIME OF REPORT. EXIT ALARM ON, CALL LIGHT IN REACH.
[2024-01-27 05:32] VITALS: BP 144/79; PULSE 79; TEMP 98
[2024-01-27 07:23] VITALS: BP_SYST 144
[2024-01-27 07:26] LABS: BASO % 0.5 % (0.0-2.0); EOS # 0.3 K/mm3 (0.0-0.7); EOS % 3.7 % (0.0-4.0); GRAN # 5.2 K/mm3 (1.4-6.5); GRAN % 68.5 % (42.2-75.2); HEMATOCRIT 35.2 % (37.0-47.0); HEMOGLOBIN 11.1 g/dl (12.5-16.0); LYMPH # 1.2 K/mm3 (1.2-3.4); MEAN CELL VOLUME 91 fl (80.0-100.0); MEAN CORPUSCULAR HEMOGLOBIN 29 pg (27-31); MEAN CORPUSCULAR HGB CONC 32 g/dl (33.0-37.0); MEAN PLATELET VOLUME 8.3 fl (7.4-10.4); MONO # 0.8 K/mm3 (0.1-0.6); MONO % 10.5 % (1.7-9.3); PLATELET COUNT 414 K/mm3 (130-400); RED BLOOD COUNT 3.86 M/mm3 (4.10-5.30); REDCELL DISTRIBUTION WIDTH-CV 14.6 % (11.5-14.5)
--- NOTE | 2024-01-27 07:35 | NUR ---
PATIENT GIVEN PAIN MEDS FOR COMPLAINT OF LLE MUSCLE PAIN, SEE MAR FOR MEDS GIVEN. CHANGE OF SHIFT REPORT GIVEN TO DAY SHIFT NURSE, CROW AND STUDENT NURSE. EXIT ALARM ON WHILE PATIENT IN BED WITH CALL LIGHT IN REACH.
[2024-01-27 07:44] LABS: CALCIUM 9.4 mg/dL (8.4-10.2); CREATININE, serum 0.8 mg/dL (0.57-1.11); POTASSIUM 4.4 mEq/L (3.5-4.5)
--- NOTE | 2024-01-27 09:24 | NUR ---
PATIENT ALERT AND ORIENTED X4. VSS. PATIENT HERE FOR S/P LUMBAR FUSION. PATIENT REPORTS MILD PAIN THIS MORNING AFTER BEING GIVEN POLO BY COAT FITTER. INCISIONS TO ABDOMEN AND LOWER BACK WITH STERI STRIPS INTACT. BRACE APPLIED. PATIENT TOLERATING PO. NO FURTHER NEEDS. CALL LIGHT IN REACH. PATIENT WAITING ON THERAPY.
--- NOTE | 2024-01-27 13:15 | NUR ---
Materials Coordinator contacted [facility] and confirmed they can accept patient at time of discharge. SW met with patient to check in. Patient confirmed plan for Saturday discharge. She feels a little unsure of her discharge readiness but thinks Home Health will be helpful. SW discussed what services will be included.
[2024-01-27 17:20] VITALS: BP 115/60; PULSE 82; TEMP 98.4
[2024-01-27 19:00] VITALS: BP_SYST 115
--- NOTE | 2024-01-27 19:00 | NUR ---
RECEIVED CHANGE OF SHIFT FROM DAY SHIFT NURSE. PATIENT RESTING IN BED, EXIT ALARM ON, CALL LIGHT IN REACH. PATIENT REQUESTING TO TAKE NEXT DOSE OF AZO WITH HS MEDS TONIGHT.
[2024-01-27 22:29] VITALS: BP 149/82; PULSE 91; TEMP 98.1
--- NOTE | 2024-01-27 22:44 | NUR ---
PATIENT REQUESTED AND GIVEN PAIN MEDS FOR C/O BLE LEG SPASMS/ BACK DISCOMFORT AND BLADDER DISCOMFORT. SEE MAR FOR MEDS GIVEN.
--- NOTE | 2024-01-28 04:33 | NUR ---
RESTING WITH EYES CLOSED, BREATHING EVEN AND NONLABORED AT THIS TIME, DID NOT WAKE AT THIS TIME DURING NURSE ROUNDING. EXIT ALARM ON, CALL LIGHT IN REACH.
[2024-01-28 06:00] VITALS: BP 107/67; PULSE 81; TEMP 98.3
[2024-01-28 06:43] VITALS: BP 124/72
--- NOTE | 2024-01-28 07:16 | NUR ---
Change of shift report given to day shift nurse, Susanna. Patient resting in bed, exit alarm on, call light in reach. Patient request and given Robaxin for continued spasms discomfort to BLE. Patient voicing concern that she is having frequent urges to void "than normal".
[2024-01-28 07:59] VITALS: BP_SYST 124
--- NOTE | 2024-01-28 07:59 | NUR ---
Shift report received from night RN. No events reported overnight. Pt reports sleeping well overnight. Call light in reach. Bed alarm on.
--- NOTE | 2024-01-28 10:33 | NUR ---
Social work student faxed updates to [facility]. Discharge plan: Home with Home Health
--- NOTE | 2024-01-28 12:26 | NUR ---
Pt sitting up in recliner eating lunch independently. Pt denies the need for pain medication at this time. Other needs denied. Call light in reach. Chair alarm in place.
--- NOTE | 2024-01-28 15:07 | NUR ---
Per pt request, pt amb to BR, SBA with walker. Denies further needs.
[2024-01-28 17:10] VITALS: BP 144/72; PULSE 92; TEMP 98.2
--- NOTE | 2024-01-28 17:55 | NUR ---
MOM given at pt's request.
--- NOTE | 2024-01-28 19:17 | NUR ---
RECEIVED CHANGE OF SHIFT REPORT FROM DAY SHIFT NURSE. PATIENT RESTING IN BED, EXIT ALARM ON, CALL LIGHT IN REACH.
[2024-01-28 19:25] VITALS: BP_SYST 144
--- NOTE | 2024-01-29 03:57 | NUR ---
REQUESTED AND GIVEN PAIN MEDS FOR C/O BLE PAIN, SEE MAR.
[2024-01-29 05:53] VITALS: BP 124/59; PULSE 78; TEMP 98.4
[2024-01-29 07:05] VITALS: BP_SYST 124
--- NOTE | 2024-01-29 07:06 | NUR ---
Shift report received from night RN. No events reported ovrnight. Pt assisted to bathroom. Supervision provided as pt stood from bed to FWW to ambulate to the bathroom.
--- NOTE | 2024-01-29 07:08 | NUR ---
CHANGE OF SHIFT REPORT GIVEN TO DAY SHIFT NURSECARY.
--- NOTE | 2024-01-29 09:29 | NUR ---
Pt ambulating off unit w/ PT.
[2024-01-29] MEDS ORDERED: Oxybutynin 5 MG TAB PO SCH (09:45)
--- NOTE | 2024-01-29 12:44 | NUR ---
Pt sitting up in recliner eating lunch independently. TLSO brace is on. Pt denies the need for pain medication at this time. Denies other needs. Call light in reach. Remains on Mod I status in room.
[2024-01-29] MEDS ORDERED: Gabapentin 300 MG CAP PO ONE (14:15)
--- NOTE | 2024-01-29 15:21 | NUR ---
Drapery Sewer Hand met with patient to provide copy of her team conference notes. Patient made Mod I in room, which has helped with her confidence in returning home Saturday. SW discussed the discharge process and follow up appointments.
--- NOTE | 2024-01-29 15:53 | NUR ---
MOM given per PRN order at pt's request.
[2024-01-29 18:00] VITALS: BP 124/70; PULSE 91; TEMP 97.9
--- NOTE | 2024-01-29 18:25 | NUR ---
Pt sitting up in recliner watching tv. Denies needs. Remains Mod I in room. Call light in reach.
[2024-01-29 19:14] VITALS: BP_SYST 124
[2024-01-29] MEDS ORDERED: Gabapentin 300 MG CAP PO SCH (21:00)
--- NOTE | 2024-01-29 23:03 | NUR ---
patient ambulating to bathroom with steady gait, walker, and back brace, lying in bed, alert and oriented x4. pt denies chest pain and shortness of breath. midline incision and lower back incisions x2 with steri strips are clean dry and intact, right upper buttock scabbed area CDI, redness noted on abd folds. pt has no further needs, questions, or concerns at this time. call light within reach. will continue to monitor.
[2024-01-30 05:42] VITALS: BP 112/68; PULSE 84; TEMP 98
[2024-01-30 07:00] VITALS: BP_SYST 112
--- NOTE | 2024-01-30 12:10 | NUR ---
Pt in bedside chair. A&Ox4. VSS. S1S2. clear lungs. ABD is rounded, soft, non-tender with audible bowel sounds. Palpable pulses in all extremities. Pt has back brace on. Denies pain, headache, dizziness, n/v. Administered meds as per EMAR. No further needs at this time. Call light in reach.
--- NOTE | 2024-01-30 16:29 | NUR ---
Multimedia Editor met with patient to present and review IM form. Patient verbalized understanding and provided signature. SW placed form in chart and provided copy to patient. SW contacted [facility] and faxed updates. Patient to discharge tomorrow.
[2024-01-30 16:54] VITALS: BP 137/75; PULSE 83; TEMP 98
[2024-01-30 19:19] VITALS: BP_SYST 137
--- NOTE | 2024-01-30 21:29 | NUR ---
patient lyin gin bed, alert and oriented x4. pt denies chest pain and shortness of breath. ambulating with steady gait and walker with back brace. midline incision and lower back incisions x2 with steristrips, small scab above right buttocks from previous drain site, all clean dry and intact. redness noted in abd folds. pt has no further needs, questions, or concerns at this time. call light within reach. will continue to monitor.
[2024-01-31 05:38] VITALS: BP 155/79; PULSE 87; TEMP 98.2
[2024-01-31 06:46] VITALS: BP_SYST 155
--- NOTE | 2024-01-31 06:46 | NUR ---
Shift report received from night RN. No events reported overnight. Pt scheduled for DC to home later this morning. Pt sleeping supine in bed w/ even & unlabored resps. Call light in reach. Remains on Mod I status in room.
[2024-01-31] MEDS ORDERED: ROBAXIN 50500 MG/TAB PO (09:39)
[2024-01-31] MEDS ORDERED: NORVASC 10MG10 MG PO (09:40)
[2024-01-31] MEDS ORDERED: NEURONTIN300 MG/CAP PO (09:41)
[2024-01-31] MEDS ORDERED: DITROPAN 5MG TAB5 MG PO (09:42)
[2024-01-31] MEDS ORDERED: ROXICODONE 55 MG/TAB PO (09:43)
--- NOTE | 2024-01-31 10:08 | NUR ---
Pt sitting up in recliner. Robaxin given for pt c/o bilat leg tightness. Pt planning for daughter to arrive around 12:00 p.m. for DC to home. Pt remains Mod I in room. Denies any needs at this time. Call light in reach.
--- NOTE | 2024-01-31 12:30 | NUR ---
Pt sitting up in recliner eating lunch. She is still waiting for her family to arrive to pick her home. Pt denies any needs at this time. Call light in reach. Remains Mod I in room.
--- NOTE | 2024-01-31 12:54 | NUR ---
Pt' son & here. DC summary reviewed w/ the pt & family. They had no further questions. Belongings gathered by son & . Valuable items in safe denied.
--- NOTE | 2024-01-31 13:09 | NUR ---
Marine Photographer contacted [facility] and faxed discharge orders.
--- NOTE | 2024-01-31 13:13 | NUR ---
Pt escorted off unit via wheelchair by BREAKER TENDER.
== END 2024-01-31 13:14 | disposition home health service (06) | DRG 92 ==
PROVIDERS: Internal Medicine; Physician Assistant; ADMIT Physical Medicine & Rehabilitation Sports Medicine
DX: Q05.9 Spina bifida, unspecified (principal); E87.1 Hypo-osmolality and hyponatremia; G95.89 Other specified diseases of spinal cord; N39.0 Urinary tract infection, site not specified; I10 Essential (primary) hypertension; R29.898 Other symptoms and signs involving the musculoskeletal system; R26.89 Other abnormalities of gait and mobility; K59.00 Constipation, unspecified; R33.8 Other retention of urine; R35.0 Frequency of micturition; R30.0 Dysuria; K21.9 Gastro-esophageal reflux disease without esophagitis; D64.9 Anemia, unspecified; Z98.1 Arthrodesis status; Z96.651 Presence of right artificial knee joint; Z74.09 Other reduced mobility; Z92.3 Personal history of irradiation; Z85.3 Personal history of malignant neoplasm of breast; Z88.1 Allergy status to other antibiotic agents; Z88.2 Allergy status to sulfonamides; Z79.891 Long term (current) use of opiate analgesic; Z79.899 Other long term (current) drug therapy
CPT/HCPCS: A9270; J1644